=== PATIENT | male | born 1955 | race Caucasian/White ===

== ENCOUNTER 2017-04-20 07:59 | Outpatient (CLI) | payer BC ==
--- NOTE | 2017-04-20 11:19 | MRI ---
MRI OF THE BRAIN WITHOUT AND WITH CONTRAST: Comparison: None. History: Bilateral hearing loss for 6-8 months. Technique: Multiplanar, multisequence MRI images were obtained of the brain without and with IV cont rast. Thin cuts through the internal auditory canals were performed without and with contrast. FINDINGS: The brain demonstrates normal signal intensity on all questions. No restricted diffusion or abnormal enhancement are seen on this examination. There is no evidence of hydrocephalus, intracranial hemor rhage, or extraaxial fluid collection. Thin cuts through the internal auditory canal shows a normal appearance of the 7th and 8th nerves. N o abnormal enhancement is seen within either internal auditory canal. The cochlea and semicircular c anals are symmetric in appearance. There is opacification of the right mastoid air cells. The expected flow voids are present. The corpus callosum, pituitary, and craniocervical junction are unremarkable. The calvarium and overlying soft tissues are unremarkable. The paranasal sinuses are well aerated. IMPRESSION: 1. No evidence of acute intracranial abnormality. 2. Opacification of the right mastoid air cells. POS: [facility]
[2017-04-20] MEDS ORDERED: Gadobenate Dimeglumine 529 MG/1 ML (20ML VIAL) ONE (16:15)
== END 2017-04-20 08:00 | disposition home or self-care (01) ==
LOC: MRI 07:59
PROVIDERS: ATTEND Otolaryngology Pediatric Otolaryngology
DX: H90.3 Sensorineural hearing loss, bilateral (principal)
CPT/HCPCS: 70553; A9579

== ENCOUNTER 2017-04-21 10:58 | Outpatient (CLI) | payer BC, OTHER | END 2017-04-21 10:59 | disposition home or self-care (01) | LOC: CTENTCT 10:58 | PROVIDERS: ATTEND Otolaryngology Plastic Surgery within the Head & Neck | DX: J32.9 Chronic sinusitis, unspecified (principal) | CPT/HCPCS: 70486 ==

== ENCOUNTER 2019-11-12 09:09 | Outpatient (CLI) | payer BC, MEDICARE, OTHER ==
--- NOTE | 2019-11-12 09:54 | ULT ---
HEPATIC DOPPLER ULTRASOUND: Date: 11/12/2019 HISTORY: Hepatitis C. TECHNIQUE: Multiplanar Swann scale sonographic imaging of the right upper quadrant obtained with Doppler interrog ation of the hepatic and splenic vasculature, including color flow and spectral analysis. FINDINGS: Imaged pancreas unremarkable. The tail of the pancreas is obscured by bowel gas. Imaged aorta and IVC appear unremarkable. Left hepatic vein, left portal vein, middle hepatic vein, right hepatic vein, and right portal vein p atent with normal directional flow. Normal patent hepatic artery and main portal vein. Common bile duct measures 5.0 mm, within normal limits. No gallbladder wall thickening or pericholecystic fluid. No gallstones are noted. The spleen measures up to 9.2 cm, within normal limits. Splenic artery and vein are patent and demons trate appropriate waveforms. IMPRESSION: Patent hepatic and splenic vasculature. POS: [facility]
== END 2019-11-12 09:10 | disposition home or self-care (01) ==
LOC: BICULT 09:09
PROVIDERS: ATTEND Internal Medicine Gastroenterology
DX: Z12.11 Encounter for screening for malignant neoplasm of colon (principal); I25.10 Atherosclerotic heart disease of native coronary artery without angina pectoris; E80.20 Unspecified porphyria; Z86.19 Personal history of other infectious and parasitic diseases
CPT/HCPCS: 76705

== ENCOUNTER 2020-08-08 08:41 | Outpatient (CLI) | payer MEDICARE, OTHER | END 2020-08-08 08:42 | disposition home or self-care (01) | LOC: BICULT 08:41 | PROVIDERS: ATTEND Internal Medicine Gastroenterology | DX: K74.60 Unspecified cirrhosis of liver (principal); E83.10 Disorder of iron metabolism, unspecified | CPT/HCPCS: 76705 ==